=== PATIENT | female | born 1970 | race Asian ===

== ENCOUNTER 2018-01-03 03:29 | Emergency (ER) | payer BC ==
[~2018-01-03] VITALS: Ht 162.6 cm; Wt 47.5 kg
[2018-01-03 04:56] VITALS: BP 147/80
== END 2018-01-03 05:05 | disposition home or self-care (01) ==
LOC: ER 03:30
DX: R06.00 Dyspnea, unspecified (principal); Z88.1 Allergy status to other antibiotic agents
CPT/HCPCS: 71046; 93005; 99284